=== PATIENT | female | born 1950 | race Caucasian/White ===

== ENCOUNTER 2017-01-11 17:28 | Emergency (ER) | payer MEDICARE, OTHER ==
[2017-01-11 19:44] LABS: HEMOGLOBIN 12.1 gm/dl (12.3-15.3); RED BLOOD COUNT 4.13 M/UL (4.00-5.10); WHITE BLOOD COUNT 8.5 K/UL (4.5-11.0)
[2017-04-27] MEDS ORDERED: NORVASC 5 MG TAB5 MG PO (10:26)
[2017-04-27] MEDS ORDERED: LISINOPRIL40 MG PO (10:27)
[2017-04-27] MEDS ORDERED: CRESTOR10 MG PO (10:27)
[2017-04-27] MEDS ORDERED: HYDROCHLOROTHIA25 MG PO (10:27)
[2017-04-27] MEDS ORDERED: OMEPRAZOLE20 M1 PO (10:27)
[2017-04-27] MEDS ORDERED: ELAVIL 10 MG TA10 MG PO (17:35)
== END 2017-01-11 20:00 | disposition home or self-care (01) ==
LOC: ER1 17:28
PROVIDERS: Physician Assistant
DX: R10.9 Unspecified abdominal pain (principal); S39.012A Strain of muscle, fascia and tendon of lower back, initial encounter; K21.9 Gastro-esophageal reflux disease without esophagitis; I10 Essential (primary) hypertension; Z90.49 Acquired absence of other specified parts of digestive tract; Z88.5 Allergy status to narcotic agent; X58.XXXA Exposure to other specified factors, initial encounter
CPT/HCPCS: 36415; 71010; 80053; 81001; 83605; 83690; 84484; 85025; 87086; 96361; 96374; 99284; J7030

== ENCOUNTER 2017-02-10 13:09 | Emergency (ER) | payer MEDICARE, OTHER ==
[2017-02-10 14:19] LABS: RED BLOOD COUNT 4.15 M/UL (4.00-5.10); WHITE BLOOD COUNT 8.6 K/UL (4.5-11.0)
[2017-02-10 14:45] LABS: BUN/CREATININE RATIO 24 (0-10)
[2017-04-27] MEDS ORDERED: NORVASC 5 MG TAB5 MG PO (10:26)
[2017-04-27] MEDS ORDERED: CRESTOR10 MG PO (10:27)
[2017-04-27] MEDS ORDERED: LISINOPRIL40 MG PO (10:27)
[2017-04-27] MEDS ORDERED: HYDROCHLOROTHIA25 MG PO (10:27)
[2017-04-27] MEDS ORDERED: OMEPRAZOLE20 M1 PO (10:27)
[2017-04-27] MEDS ORDERED: ELAVIL 10 MG TA10 MG PO (17:35)
== END 2017-02-10 17:05 | disposition home or self-care (01) ==
LOC: ER1 13:09
PROVIDERS: Physician Assistant
DX: N39.0 Urinary tract infection, site not specified (principal); I10 Essential (primary) hypertension; Z88.5 Allergy status to narcotic agent; Z79.899 Other long term (current) drug therapy
CPT/HCPCS: 36415; 80053; 81001; 85025; 96374; 96375; 99284; J2405